=== PATIENT | male | born 1990 | race Caucasian/White ===

== ENCOUNTER 2017-01-12 08:42 | Emergency (ER) | payer SELFPAY ==
[~2017-01-12] VITALS: Ht 180.3 cm; Wt 104.2 kg
[2017-01-12] MEDS ORDERED: FAMOTIDINE 20 MG/2 ML IVP ONE (10:30)
[2017-01-12] MEDS ORDERED: SODIUM CHLORIDE FLUSH 10ML SYR IVF ONE (10:30)
[2017-01-12] MEDS ORDERED: SODIUM CHLORIDE 0.9% 1,000ML IVBOLUS ONE (10:30)
[2017-01-12] MEDS ORDERED: ONDANSETRON 2MG/ML, 2ML IVPush ONE ×2 (10:30→13:00)
[2017-01-12 10:39] LABS: BLOOD UREA NITROGEN 17 mg/dL (7-18)
[2017-01-12] MEDS ORDERED: FAMOTIDINE 20 MG/2 ML ONE (10:41)
[2017-01-12] MEDS ORDERED: ONDANSETRON 2MG/ML, 2ML ONE ×2 (10:41→12:49)
[2017-01-12 10:43] LABS: ASPARTATE AMINO TRANSFERASE 18 U/L (15-37)
[2017-01-12] MEDS ORDERED: OMNIPAQUE 350 MG/ML, 100ML BOTTLE ONE (12:17)
[2017-01-12] MEDS ORDERED: KETOROLAC 30 MG/1 ML ONE (12:49)
[2017-01-12] MEDS ORDERED: KETOROLAC 30 MG/1 ML IVPush ONE (13:00)
[2017-01-12 13:47] VITALS: BP 132/77
== END 2017-01-12 13:51 | disposition home or self-care (01) ==
LOC: ED 12:28
DX: K52.9 Noninfective gastroenteritis and colitis, unspecified (principal)
CPT/HCPCS: 36415; 74022; 74177; 80053; 81003; 83690; 85025; 87324; 89055; 96361; 96374; 96375; 99285; J1885; J2405; J7030; Q9967; S0028